=== PATIENT | male | born 1980 | race Caucasian/White ===

== ENCOUNTER 2016-08-22 23:09 | Emergency (ER) | payer BC ==
[~2016-08-22] VITALS: Ht 177.8 cm; Wt 78.7 kg
[~2016-08-22 23:09] MED LIST: CEPH500C2 PO; SULF800T23 PO
[2016-08-22 23:11] VITALS: TEMP 37; Ht 177.8 cm; Wt 78.7 kg
[2016-08-22] MEDS ORDERED: AMOX500C3 PO (23:28)
--- NOTE | 2016-08-22 23:29 | EMERGENCY ROOM VISIT NOTE ---
ED Visit Note First contact with patient: 23:14 CHIEF COMPLAINT: Sore throat 2 days HISTORY OF PRESENT ILLNESS: Patient is a 35-year-old white male who reports increasing pain in the throat over the past 2 days, gradual in onset, worse with swallowing. He has had chills, has not documented a fever but has been taking ibuprofen regularly for her stroke patient. He notes swollen lymph nodes in his neck. No rash. Denies any posterior neck pain or stiffness. No difficulty breathing. Symptoms came on gradually. There has been no chest pain , no abdominal pain, no nausea or vomiting. REVIEW OF SYSTEMS: Review of systems as per HPI. All other systems reviewed were negative. At least 6 systems reviewed. PMH: Electronic medical records are reviewed and summarized as above/below. See Problem List. SOCIAL HISTORY: Patient lives at home. Employed. Smoker. PHYSICAL EXAM: Vital Signs: Reviewed Nurse's notes. MENTAL STATUS: Alert and oriented. EARS: Tympanic membranes intact, not inflamed, have normal contour. External canals clear. THROAT: The pharynx is inflamed and slightly swollen. exudates are seen on the tonsils. The oropharyngeal airway is patent. Uvula is midline and no abscess is seen. NECK: Cervical chain lymphadenopathy noted bilaterally. No nuchal rigidity.SKIN: Clear and dry, no eruptions. No cyanosis, no petechiae. ED course: The patient was seen and evaluated as above. He has painful, erythematous and swollen tonsils with simple chain lymphadenopathy and subjective fevers. I will treat him clinically for strep pharyngitis. He'll be placed on amoxicillin. Differential diagnoses include strep versus viral pharyngitis, retropharyngeal or peritonsillar abscess, among others. Problem List Medical Problems: (1) Acute bronchitis Status: Resolved (2) Asthma, Unspecified Status: Chronic (3) Fx Tibia Nos-Closed Status: Resolved (4) Infected sebaceous cyst Status: Resolved (5) Rib fracture Status: Resolved (6) Rib pain Status: Resolved (7) Rib pain Status: Resolved (8) Sinusitis Status: Resolved (9) Tobacco Use Disorder Status: Chronic Current/Historical Medications Scheduled Cephalexin Monohydrate (Keflex), 500 MG PO TID Sulfa/Trimethoprim (Bactrim Ds 800MG/160MG), 1 TAB PO BID Allergies Coded Allergies: Erythromycin (Unverified Adverse Reaction, Unknown, ABDOMINAL PAIN, ) Vital Signs Date Time Temp Pulse Resp B/P Pulse Ox O2 Delivery O2 Flow Rate FiO2 08/22/16 23:11 96 Room Air 08/22/16 23:11 37.0 100 20 139/87 98 Room Air Departure Information Impression Primary Impression: Acute pharyngitis Prescriptions Amoxicillin (AMOXIL) 500 Mg Cap 500 MG PO TID, #30 CAP Prov: Alberta Troncoso PA 08/22/16 Referrals No Doctor, Assigned (PCP) Patient Instructions My [facility] Additional Instructions Amoxicillin 500mg: Take one pill 3 times daily for 10 days for your throat infection. All antibiotics can cause diarrhea. If this occurs and you feel worse or it does not resolve in 1-2 days follow up with your doctor or return to the Emergency Department as this could be signs of serious underlying problems. Any medication can cause an allergic reaction, stop the pills immediately and return to the ER for rash, hives, breathing difficulties, or swelling. Ibuprofen(Motrin, Advil) may be used for fever or pain. Use 600mg every six hours as needed. Take with food. Avoid using more than 2400mg in a 24 hour period. Do not use 2400mg per day for more than three consecutive days without physician direction. Prolonged inappropriate use can lead to stomach upset or ulcers. (AND/OR) Acetaminophen(Tylenol) may be used for fever or pain. Use 1000mg every six hours as needed. Avoid using more than 4000mg in a 24 hour period. Saltwater gargles Follow-up with your primary care physician if your symptoms are not improving in the next 2-3 days.
[2016-08-22] MEDS ORDERED: AMOXICILLIN 250 MG CAP PO ONE (23:30)
[2016-08-22 23:55] VITALS: BP 141/84; PULSE 95; O2SAT 99
== END 2016-08-22 23:55 | disposition home or self-care (01) ==
LOC: C.EDB 23:09 → C.EDC 23:55
DX: J02.9 Acute pharyngitis, unspecified (principal); R59.1 Generalized enlarged lymph nodes; J45.909 Unspecified asthma, uncomplicated; F17.200 Nicotine dependence, unspecified, uncomplicated; Z88.1 Allergy status to other antibiotic agents